=== PATIENT | male | born 1950 | race Caucasian/White ===

== ENCOUNTER 2020-02-22 10:26 | Outpatient (CLI) | payer MEDICARE ==
--- NOTE | 2020-02-22 13:18 | MRI ---
MRI LUMBAR SPINE PERFORMED WITHOUT CONTRAST ENHANCEMENT: Date: 02/22/2020 HISTORY: Back pain with radiculopathy. FINDINGS: Vertebral bodies are normal in height. There are some disc desiccation changes along the course of th e spine. There is very mild disc narrowing at the L3-4 and L4-5 levels. Schmorl's node change is seen involving the inferior end plate of L3 associated with some edema change. There is no significant pe riaortic adenopathy. Incidental note is made of a moderately distended bladder partially visualized o n this study. The visualized kidneys show no focal findings. T12-L1: Unremarkable. L1-2: Degenerative facet changes without canal or foraminal stenosis. L2-3: Canal is borderline narrowed with degenerative facet and ligamentous hypertrophic change and s ome disc bulge. L3-4: There is a mild degree of canal stenosis, mainly related to the facet and ligamentous hypertro phy change. Disc bulge contributes to some moderate left foraminal stenosis in conjunction with the f acet changes. L4-5: Canal is also mildly stenotic at this level. Prominent degenerative facet changes are seen. Th ere is mild to moderate right and moderate left foraminal stenosis. L5-S1: Degenerative facet changes are also present at this level with moderately severe bilateral fo raminal narrowing. IMPRESSION: Multilevel areas of foraminal stenosis as above. POS: MARTY
== END 2020-02-22 10:27 | disposition home or self-care (01) ==
LOC: TBSIIMAG 10:26
PROVIDERS: ATTEND Specialist
DX: M54.16 Radiculopathy, lumbar region (principal); M48.061 Spinal stenosis, lumbar region without neurogenic claudication; M48.07 Spinal stenosis, lumbosacral region
CPT/HCPCS: 72148

== ENCOUNTER 2020-11-09 13:13 | Outpatient (CLI) | payer MEDICARE | END 2020-11-09 13:14 | disposition home or self-care (01) | LOC: SCSMRI 13:13 | PROVIDERS: ATTEND Orthopaedic Surgery | DX: M23.304 Other meniscus derangements, unspecified medial meniscus, left knee (principal); S83.242A Other tear of medial meniscus, current injury, left knee, initial encounter; R60.0 Localized edema ==

== ENCOUNTER 2021-02-26 10:05 | Outpatient (CLI) | payer MEDICARE ==
[2021-02-26 12:57] LABS: #Eosinphils 0.1 10x3/uL (0.0-0.5); #Monocytes 0.5 10x3/uL (0.0-1.1); %Basophils 0.7 % (0.0-2.0); %Eosinophils 1.5 % (0.0-6.0); %Lymphocytes 42.5 % (18.0-47.0); %Monocytes 10.4 % (0.0-10.0); %Neutrophils 44.7 % (40.0-75.0); Hemoglobin 14.9 g/dL (13.5-17.5); Mean Corpuscular HGB CONC 34.3 g/dL (32.0-36.0); Mean Corpuscular Hemoglobin 31.9 pg (27.0-33.0); Mean Corpuscular Volume 92.9 fl (81.2-95.1); Mean Platelet Volume 9.6 fl (7.4-10.4); Platelet Count 173 10x3/uL (150-450); RBC Distribution Width 11.6 % (11.5-14.5); Red Blood Cell (RBC) Count 4.67 10x6/uL (4.32-5.72); White Blood Cell (WBC) Count 4.5 10x3/uL (3.5-10.5)
[2021-02-26 13:19] LABS: Anion Gap 14 mmol/L (10-20); BUN (Urea Nitrogen) 17 mg/dL (8.4-25.7); Calc. Creatinine Clearance 0 mL/min (70-130); Calcium 9.7 mg/dL (7.8-10.44); Carbon Dioxide 23 mmol/L (23-31); Chloride 107 mmol/L (98-107); Glucose 86 mg/dL (80-115); Potassium 4.4 mmol/L (3.5-5.1); Sodium 140 mmol/L (136-145)
[2021-02-26 22:20] LABS: SARS-CoV-2 PCR by NAA Not Detected (NotDetected)
== END 2021-02-26 10:06 | disposition home or self-care (01) ==
LOC: LABBT 10:05
PROVIDERS: ATTEND Orthopaedic Surgery
DX: Z01.818 Encounter for other preprocedural examination (principal); S83.242A Other tear of medial meniscus, current injury, left knee, initial encounter; Z20.822 Contact with and (suspected) exposure to COVID-19
CPT/HCPCS: 80048; 85025; 93005; U0003; U0005; 93010

== ENCOUNTER 2021-03-01 06:52 | Day surgery (SDC) | payer MEDICARE ==
[2021-02-28 14:28] VITALS: BMI 32.5
== END 2021-03-01 09:10 | disposition home or self-care (01) ==
LOC: SDC 06:52
PROVIDERS: ATTEND Orthopaedic Surgery
DX: M23.204 Derangement of unspecified medial meniscus due to old tear or injury, left knee (principal); Z53.09 Procedure and treatment not carried out because of other contraindication; R07.89 Other chest pain; R06.02 Shortness of breath; R94.31 Abnormal electrocardiogram [ECG] [EKG]; I10 Essential (primary) hypertension; E78.5 Hyperlipidemia, unspecified; Z79.82 Long term (current) use of aspirin; Z79.899 Other long term (current) drug therapy
CPT/HCPCS: J0690

== ENCOUNTER 2021-04-23 13:25 | Outpatient (CLI) | payer MEDICARE ==
[2021-04-23 14:34] LABS: #Monocytes 0.5 10x3/uL (0.0-1.1); #Neutrophils 3.3 10x3/uL (1.5-8.4); %Basophils 0.3 % (0.0-2.0); %Eosinophils 0.3 % (0.0-6.0); %Lymphocytes 35.9 % (18.0-47.0); %Monocytes 8.8 % (0.0-10.0); %Neutrophils 54.2 % (40.0-75.0); Hemoglobin 16.5 g/dL (13.5-17.5); Mean Corpuscular HGB CONC 33.9 g/dL (32.0-36.0); Mean Corpuscular Hemoglobin 30.8 pg (27.0-33.0); Mean Corpuscular Volume 90.9 fl (81.2-95.1); Platelet Count 190 10x3/uL (150-450); Red Blood Cell (RBC) Count 5.36 10x6/uL (4.32-5.72); White Blood Cell (WBC) Count 6.2 10x3/uL (3.5-10.5)
[2021-04-23 15:25] LABS: Anion Gap 13 mmol/L (10-20); BUN (Urea Nitrogen) 20 mg/dL (8.4-25.7); Calc. Creatinine Clearance 0 mL/min (70-130); Calcium 9.2 mg/dL (7.8-10.44); Carbon Dioxide 27 mmol/L (23-31); Chloride 102 mmol/L (98-107); Glucose 100 mg/dL (80-115); Potassium 3.9 mmol/L (3.5-5.1); Sodium 138 mmol/L (136-145)
[2021-04-23 20:29] LABS: SARS-CoV-2 PCR by NAA Not Detected (NotDetected)
== END 2021-04-23 13:26 | disposition home or self-care (01) ==
LOC: LABBT 13:25
PROVIDERS: ATTEND Orthopaedic Surgery
DX: Z01.812 Encounter for preprocedural laboratory examination (principal); S83.242A Other tear of medial meniscus, current injury, left knee, initial encounter; Z20.822 Contact with and (suspected) exposure to COVID-19
CPT/HCPCS: 80048; 85025; U0003; U0005

== ENCOUNTER 2021-04-26 05:45 | Day surgery (SDC) | payer MEDICARE ==
[2021-04-25 12:10] VITALS: BMI 32.5
[2021-04-26] MEDS ORDERED: PROPOFOL 20 ML ONE (06:51)
[2021-04-26] MEDS ORDERED: Lidocaine 1% PF 5 ML VIAL ONE (07:13)
[2021-04-26] MEDS ORDERED: Glycopyrrolate 0.2 MG/ML 5 ML SYRINGE ONE (07:13)
[2021-04-26] MEDS ORDERED: Lidocaine 2% w/Epinephrine 1:200K 20 ML VIAL ONE (07:13)
[2021-04-26] MEDS ORDERED: Ondansetron PF 4 MG/2 ML Vial ONE (07:13)
[2021-04-26] MEDS ORDERED: PROPOFOL 200 MG/20 ML VIAL ONE (07:13)
[2021-04-26] MEDS ORDERED: Bupivacaine HCl 0.5%/Epinephrine 1:200,000/PF 30 ml Vial ONE (07:13)
[2021-04-26] MEDS ORDERED: Dexamethasone 20 MG/5 ML VIAL ONE (07:13)
[2021-04-26] MEDS ORDERED: ePHEDrine 50 MG/ML VIAL ONE (07:13)
[2021-04-26] MEDS ORDERED: Ketorolac Tromethamine 30 MG/ML VIAL ONE (07:13)
[2021-04-26] MEDS ORDERED: Famotidine/PF 20 mg/2ml Vial ONE (07:32)
[2021-04-26] MEDS ORDERED: Fentanyl 100 MCG/2 ML VIAL ONE (07:32)
== END 2021-04-26 10:53 | disposition home or self-care (01) ==
LOC: SDC 05:45
PROVIDERS: ATTEND Orthopaedic Surgery
PROC: 0SBD4ZZ Excision of Left Knee Joint, Percutaneous Endoscopic Approach (ICD-10-PCS; principal; 2021-04-26)
DX: M23.322 Other meniscus derangements, posterior horn of medial meniscus, left knee (principal); M94.262 Chondromalacia, left knee; M75.21 Bicipital tendinitis, right shoulder; M84.452A Pathological fracture, left femur, initial encounter for fracture; K21.9 Gastro-esophageal reflux disease without esophagitis; I10 Essential (primary) hypertension; N40.0 Benign prostatic hyperplasia without lower urinary tract symptoms; Z79.899 Other long term (current) drug therapy
CPT/HCPCS: J0690; J1100; J1885; J2405; J2704; J3010; J3490; S0028

== ENCOUNTER 2021-08-04 13:46 | Inpatient (IN) | payer MEDICARE ==
[~2021-08-04 13:46] MED LIST: Iopamidol 370 76% 100 ML VIAL ONE
[2021-08-04] MEDS ORDERED: Nitroglycerin 2% Ointment 1 INCH/1 GM Packet ONE (13:58)
[2021-08-04] MEDS ORDERED: Aspirin Chewable 81 MG TAB ONE (13:58)
[2021-08-04 14:40] LABS: #Lymphocytes 2.2 thou/uL (1.20-3.40); #Monocytes 0.8 thou/uL (0.11-0.59); %Eosinophils 0.5 % (0.0-10.0); %Lymphocytes 24.4 % (21.0-51.0); %Neutrophils 66.1 % (42.0-75.0); Hemoglobin 14.5 g/dL (14.0-18.0); Mean Corpuscular HGB CONC 34.3 g/dL (32.0-36.0); Mean Corpuscular Hemoglobin 32.8 pg (27.0-31.0); Mean Corpuscular Volume 95.5 fL (78.0-98.0); Mean Platelet Volume 6.3 fL (7.4-10.4); Platelet Count 188 thou/uL (130-400); RBC Distribution Width 10.9 % (11.5-14.5); Red Blood Cell (RBC) Count 4.43 mill/uL (4.70-6.10)
[2021-08-04 14:51] LABS: PTT 29.7 sec (22.9-36.1); Prothrombin Time 12.9 sec (12.0-14.7)
[2021-08-04 14:57] LABS: ALT (SGPT) 28 U/L (8-55); AST (SGOT) 23 U/L (5-34); Albumin 3.9 g/dL (3.4-4.8); Alkaline Phosphatase 114 U/L (40-110); Anion Gap 14 mmol/L (10-20); BUN (Urea Nitrogen) 15 mg/dL (8.4-25.7); Calc. Creatinine Clearance 0 mL/min (70-130); Calcium 8.8 mg/dL (7.8-10.44); Carbon Dioxide 21 mmol/L (23-31); Chloride 104 mmol/L (98-107); Globulin 2.7 g/dL (2.4-3.5); Glucose 85 mg/dL (80-115); Lipase 37 U/L (8-78); Potassium 3.9 mmol/L (3.5-5.1); Protein, Total 6.6 g/dL (5.8-8.1); Sodium 135 mmol/L (136-145)
[2021-08-04] MEDS ORDERED: Enoxaparin Sodium 80 MG/0.8 ML SYRINGE ONE ×2 (14:59→15:02)
[2021-08-04] MEDS ORDERED: Enoxaparin Sodium 30 MG/0.3 ML SYRINGE ONE (14:59)
[2021-08-04] MEDS ORDERED: Morphine 4 MG/ML VIAL ONE (14:59)
[2021-08-04] MEDS: Amlodipine 5 MG TAB PO SCH (17:20)
[2021-08-04 17:32] VITALS: BMI 33.3
[2021-08-04 17:47] LABS: Troponin I Less than 0.010 ng/mL (< 0.028)
[2021-08-04] MEDS: Atorvastatin Calcium 10 MG TAB PO SCH (20:28)
[2021-08-04 20:41] LABS: Troponin I Less than 0.010 ng/mL (< 0.028)
[2021-08-04] MEDS ORDERED: Ketorolac Tromethamine 30 MG/ML VIAL IVP SCH (21:30)
[2021-08-05 00:08] LABS: SARS-CoV-2 PCR by NAA DETECTED (NotDetected)
[2021-08-05] MEDS: Enoxaparin Sodium 120 MG/0.8 ML SYRINGE SC SCH ×2 (03:06→15:04)
[2021-08-05 05:23] LABS: #Lymphocytes 2.3 thou/uL (1.20-3.40); #Monocytes 0.7 thou/uL (0.11-0.59); #Neutrophils 3.1 thou/uL (1.40-6.50); %Basophils 0.3 % (0.0-1.0); %Eosinophils 0.7 % (0.0-10.0); %Lymphocytes 38.2 % (21.0-51.0); %Monocytes 10.7 % (0.0-10.0); %Neutrophils 50.2 % (42.0-75.0); Hemoglobin 14.2 g/dL (14.0-18.0); Mean Corpuscular HGB CONC 33.2 g/dL (32.0-36.0); Mean Corpuscular Hemoglobin 31.5 pg (27.0-31.0); Mean Corpuscular Volume 94.9 fL (78.0-98.0); Mean Platelet Volume 6.5 fL (7.4-10.4); Platelet Count 171 thou/uL (130-400); RBC Distribution Width 10.9 % (11.5-14.5); White Blood Cell (WBC) Count 6.1 thou/uL (4.8-10.8)
[2021-08-05 05:35] LABS: ALT (SGPT) 75 U/L (8-55); AST (SGOT) 59 U/L (5-34); Albumin 3.7 g/dL (3.4-4.8); Alkaline Phosphatase 160 U/L (40-110); Anion Gap 12 mmol/L (10-20); BUN (Urea Nitrogen) 15 mg/dL (8.4-25.7); Bilirubin, Total 1.2 mg/dL (0.2-1.2); Calc. Creatinine Clearance 74 mL/min (70-130); Calcium 8.7 mg/dL (7.8-10.44); Carbon Dioxide 23 mmol/L (23-31); Chloride 105 mmol/L (98-107); Globulin 2.7 g/dL (2.4-3.5); Glucose 92 mg/dL (80-115); Protein, Total 6.4 g/dL (5.8-8.1); Sodium 136 mmol/L (136-145)
[2021-08-05] MEDS ORDERED: GLUCOS SUL PO SCH (09:00)
[2021-08-05] MEDS ORDERED: [UNRECOGNIZED DRUG - OTHER] PO SCH (09:00)
[2021-08-05] MEDS: Multivitamin W/ Minerals 1 TAB PO SCH (09:33)
[2021-08-05] MEDS: Losartan 25 MG TAB PO SCH (09:33)
[2021-08-05] MEDS: Acetaminophen 325 MG TAB PO PRN ×2 (12:16→20:26)
[2021-08-05] MEDS: Fluticasone Propionate Nasal Spray 16 gm Bottle NASAL SCH (12:29)
[2021-08-05 16:56] LABS: Creatinine, Urine 59.24 mg/dL (63-166)
[2021-08-05] MEDS: Amlodipine 5 MG TAB PO SCH (20:19)
[2021-08-05] MEDS: Atorvastatin Calcium 10 MG TAB PO SCH (20:19)
[2021-08-06 05:07] LABS: #Eosinphils 0.1 thou/uL (0.0-0.7); #Lymphocytes 1.9 thou/uL (1.20-3.40); #Monocytes 0.7 thou/uL (0.11-0.59); #Neutrophils 3.1 thou/uL (1.40-6.50); %Basophils 0.7 % (0.0-1.0); %Eosinophils 1.2 % (0.0-10.0); %Lymphocytes 33.4 % (21.0-51.0); %Monocytes 11.7 % (0.0-10.0); %Neutrophils 53.1 % (42.0-75.0); Hemoglobin 14.8 g/dL (14.0-18.0); Mean Corpuscular HGB CONC 32.4 g/dL (32.0-36.0); Mean Corpuscular Hemoglobin 31.7 pg (27.0-31.0); Mean Platelet Volume 6.2 fL (7.4-10.4); Platelet Count 194 thou/uL (130-400); RBC Distribution Width 10.7 % (11.5-14.5); Red Blood Cell (RBC) Count 4.68 mill/uL (4.70-6.10); White Blood Cell (WBC) Count 5.8 thou/uL (4.8-10.8)
[2021-08-06 05:11] LABS: ALT (SGPT) 54 U/L (8-55); AST (SGOT) 30 U/L (5-34); Albumin 3.8 g/dL (3.4-4.8); Alkaline Phosphatase 149 U/L (40-110); Anion Gap 11 mmol/L (10-20); BUN (Urea Nitrogen) 17 mg/dL (8.4-25.7); Calc. Creatinine Clearance 80 mL/min (70-130); Carbon Dioxide 23 mmol/L (23-31); Chloride 107 mmol/L (98-107); Globulin 2.9 g/dL (2.4-3.5); Glucose 101 mg/dL (80-115); Protein, Total 6.7 g/dL (5.8-8.1); Sodium 137 mmol/L (136-145)
[2021-08-06] MEDS: Losartan 25 MG TAB PO SCH (07:56)
[2021-08-06] MEDS: Multivitamin W/ Minerals 1 TAB PO SCH (07:57)
[2021-08-06] MEDS ORDERED: Apixaban 5 MG TAB PO SCH ×2 (09:00→21:00)
[2021-08-06] MEDS: Fluticasone Propionate Nasal Spray 16 gm Bottle NASAL SCH (11:02)
[2021-08-06 12:03] VITALS: BP 132/82; TEMP 98.4
[2021-08-13] MEDS ORDERED: Apixaban 5 MG TAB PO SCH (09:00)
== END 2021-08-06 13:31 | disposition home or self-care (01) | DRG 177 ==
LOC: ERS 13:46 → INTOOBSV 15:25 → 2NO 15:25 → 2SW 08-05 01:19 → OBSVTOIN 08-06 13:30
PROVIDERS: ADMIT Family Medicine; ATTEND Family Medicine
PROC: 8E0ZXY6 Isolation (ICD-10-PCS; principal; 2021-08-06)
DX: U07.1 COVID-19 (principal); I26.99 Other pulmonary embolism without acute cor pulmonale; J90 Pleural effusion, not elsewhere classified; I10 Essential (primary) hypertension; E78.5 Hyperlipidemia, unspecified; I45.10 Unspecified right bundle-branch block; N18.31 Chronic kidney disease, stage 3a; I12.9 Hypertensive chronic kidney disease with stage 1 through stage 4 chronic kidney disease, or unspecified chronic kidney disease; C44.319 Basal cell carcinoma of skin of other parts of face; C44.212 Basal cell carcinoma of skin of right ear and external auricular canal; M71.22 Synovial cyst of popliteal space [Baker], left knee; M71.21 Synovial cyst of popliteal space [Baker], right knee; E78.00 Pure hypercholesterolemia, unspecified; Z79.899 Other long term (current) drug therapy; Z90.49 Acquired absence of other specified parts of digestive tract
CPT/HCPCS: 36415; 71275; 74174; 80053; 82570; 83690; 83880; 84300; 84484; 85025; 85610; 85730; 93005; 93970; 94760; 96372; 96374; J1650; J1885; J2270; Q9967; U0003; U0005

== ENCOUNTER 2022-08-20 14:07 | Outpatient (CLI) | payer MEDICARE | END 2022-08-20 14:08 | disposition home or self-care (01) | LOC: TBSIIMAG 14:07 | PROVIDERS: ATTEND Nurse Practitioner Family | DX: M50.121 Cervical disc disorder at C4-C5 level with radiculopathy (principal); M50.122 Cervical disc disorder at C5-C6 level with radiculopathy | CPT/HCPCS: 72141 ==

== ENCOUNTER 2022-09-26 11:41 | Outpatient (CLI) | payer MEDICARE | END 2022-09-26 11:42 | disposition home or self-care (01) | LOC: TBSIIMAG 11:41 → MRI 11:42 | PROVIDERS: ATTEND Specialist | DX: M47.26 Other spondylosis with radiculopathy, lumbar region (principal); M51.16 Intervertebral disc disorders with radiculopathy, lumbar region; M48.07 Spinal stenosis, lumbosacral region; M47.817 Spondylosis without myelopathy or radiculopathy, lumbosacral region; M51.37 Other intervertebral disc degeneration, lumbosacral region; M89.38 Hypertrophy of bone, other site | CPT/HCPCS: 72148 ==

== ENCOUNTER 2023-02-12 06:16 | Day surgery (SDC) | payer MEDICARE ==
[2023-02-10 15:24] VITALS: BMI 33.2
[2023-02-12] MEDS ORDERED: Thrombin 5000 UNITS/5 ML VIAL ONE (06:45)
[2023-02-12] MEDS ORDERED: EPINEPHrine 1 MG/ML AMP ONE (06:45)
[2023-02-12] MEDS ORDERED: Bupivacaine PF 0.5% 30 ML VIAL ONE (06:45)
[2023-02-12] MEDS ORDERED: CEFAZOLIN 2 GM VIAL ONE ×2 (07:27→11:21)
[2023-02-12] MEDS ORDERED: Sodium Chloride 0.9% 100 ML ONE ×2 (07:27→11:21)
[2023-02-12] MEDS ORDERED: Dexamethasone 20 MG/5 ML VIAL ONE (07:47)
[2023-02-12] MEDS ORDERED: Ondansetron PF 4 MG/2 ML Vial ONE (07:47)
[2023-02-12] MEDS ORDERED: Rocuronium Bromide 10 MG/ML (10ML VIAL) ONE (07:47)
[2023-02-12] MEDS ORDERED: Glycopyrrolate 0.2 MG/ML 5 ML SYRINGE ONE (07:47)
[2023-02-12] MEDS ORDERED: PROPOFOL 200 MG/20 ML VIAL ONE (07:47)
[2023-02-12] MEDS ORDERED: ePHEDrine Sulfate 50 MG/10 ML VIAL ONE (07:47)
[2023-02-12] MEDS ORDERED: Lidocaine 1% PF 5 ML VIAL ONE (07:47)
[2023-02-12] MEDS ORDERED: Sevoflurane 250 ML INH ANEST BOTTLE ONE (08:08)
[2023-02-12] MEDS ORDERED: fentaNYL 50 mcg/mL 1 mL Vial ONE ×3 (08:12→09:57)
[2023-02-12] MEDS ORDERED: SUGAMMADEX SODIUM 200 MG/2 ML VIAL ONE (08:12)
[2023-02-12] MEDS ORDERED: Tamsulosin HCl 0.4 MG CAP ONE (10:04)
== END 2023-02-12 15:46 | disposition home or self-care (01) ==
LOC: SDC 06:16
PROVIDERS: ATTEND Neurological Surgery
PROC: 01NB0ZZ Release Lumbar Nerve, Open Approach (ICD-10-PCS; principal; 2023-02-12)
DX: M54.16 Radiculopathy, lumbar region (principal); E78.5 Hyperlipidemia, unspecified; M19.90 Unspecified osteoarthritis, unspecified site; I10 Essential (primary) hypertension; K21.9 Gastro-esophageal reflux disease without esophagitis; N40.0 Benign prostatic hyperplasia without lower urinary tract symptoms; Z98.890 Other specified postprocedural states; Z79.82 Long term (current) use of aspirin; Z79.899 Other long term (current) drug therapy
CPT/HCPCS: 63030; 63035; 93005; J3010; 93010; J0171; J1100; J2405; J2704; J3490; S0020

== ENCOUNTER 2024-05-06 09:37 | Outpatient (CLI) | payer MEDICARE | END 2024-05-06 09:38 | disposition home or self-care (01) | LOC: SCSMRI 09:37 | PROVIDERS: ATTEND Student in an Organized Health Care Education/Training Program | DX: M24.811 Other specific joint derangements of right shoulder, not elsewhere classified (principal); M75.121 Complete rotator cuff tear or rupture of right shoulder, not specified as traumatic; M75.111 Incomplete rotator cuff tear or rupture of right shoulder, not specified as traumatic; S43.431A Superior glenoid labrum lesion of right shoulder, initial encounter ==

== ENCOUNTER 2024-05-27 15:30 | Outpatient (CLI) | payer MEDICARE | END 2024-05-27 15:31 | disposition home or self-care (01) | LOC: LABBT 15:30 | PROVIDERS: ATTEND Student in an Organized Health Care Education/Training Program | DX: Z01.810 Encounter for preprocedural cardiovascular examination (principal); S46.011A Strain of muscle(s) and tendon(s) of the rotator cuff of right shoulder, initial encounter; S43.431A Superior glenoid labrum lesion of right shoulder, initial encounter; M75.21 Bicipital tendinitis, right shoulder; M75.51 Bursitis of right shoulder; I12.9 Hypertensive chronic kidney disease with stage 1 through stage 4 chronic kidney disease, or unspecified chronic kidney disease; N18.9 Chronic kidney disease, unspecified; I25.10 Atherosclerotic heart disease of native coronary artery without angina pectoris; I26.99 Other pulmonary embolism without acute cor pulmonale; G47.33 Obstructive sleep apnea (adult) (pediatric); K21.9 Gastro-esophageal reflux disease without esophagitis; Z79.82 Long term (current) use of aspirin; Z79.51 Long term (current) use of inhaled steroids; Z79.899 Other long term (current) drug therapy | CPT/HCPCS: 80048; 85025; 85610; 86850; 86900; 86901; 93005; 93010 ==

== ENCOUNTER 2024-06-01 06:32 | Day surgery (SDC) | payer MEDICARE ==
[2024-05-27 16:03] VITALS: BMI 31.1
[2024-05-27 16:42] LABS: #Basophils 0.03 10x3/uL (0.0-0.2); %Basophils 0.5 % (0.0-1.0); %Eosinophils 0.9 % (0.0-10.0); %Lymphocytes 37.4 % (21.0-51.0); %Monocytes 9.3 % (0.0-10.0); %Neutrophils 51.7 % (42.0-75.0); Hemoglobin 15.6 g/dL (14.0-18.0); Mean Corpuscular HGB CONC 34.7 g/dL (32.0-36.0); Mean Corpuscular Hemoglobin 32.1 pg (27.0-31.0); Mean Corpuscular Volume 92.6 fL (78.0-98.0); Mean Platelet Volume 8.5 fL (7.4-10.4); Platelet Count 180 10x3/uL (130-400); RBC Distribution Width 11.4 % (11.5-14.5); Red Blood Cell (RBC) Count 4.86 mill/uL (4.70-6.10)
[2024-05-27 17:02] LABS: Prothrombin Time 12.7 sec (12.0-14.7)
[2024-05-27 17:03] LABS: Anion Gap 14 mmol/L (10-20); BUN (Urea Nitrogen) 16 mg/dL (8.4-25.7); Calc. Creatinine Clearance 0 mL/min (70-130); Carbon Dioxide 26 mmol/L (23-31); Chloride 105 mmol/L (98-107); Estimated GFR 58; Glucose 88 mg/dL (83-110); Potassium 3.8 mmol/L (3.5-5.1); Sodium 141 mmol/L (136-145)
[2024-06-01] MEDS ORDERED: Ropivacaine 0.5% HCl/PF (150 MG/30 ML VIAL) ONE (08:56)
[2024-06-01] MEDS ORDERED: fentaNYL 50 mcg/mL 1 mL Vial ONE ×3 (08:56→16:20)
[2024-06-01] MEDS ORDERED: Midazolam HCl 2 mg/2 ml Vial ONE (08:56)
[2024-06-01] MEDS ORDERED: PROPOFOL 20 ML ONE (09:40)
[2024-06-01] MEDS ORDERED: fentaNYL PF 100 MCG/2 ML SYRINGE ONE (09:40)
[2024-06-01] MEDS ORDERED: Ondansetron PF 4 MG/2 ML Vial ONE (09:43)
[2024-06-01] MEDS ORDERED: traMADol HCl 50 MG TAB PO PRN ×2 (10:00)
[2024-06-01] MEDS ORDERED: HYDROcodone/Acetaminophen 10/325 mg Tablet PO PRN ×2 (10:00)
[2024-06-01] MEDS ORDERED: Ropivacaine 0.2% 550 ML 550 ML NERVE BLCK SCH (10:00)
[2024-06-01] MEDS ORDERED: Promethazine HCl 25 MG/ML VIAL IM PRN (10:00)
[2024-06-01] MEDS ORDERED: Ondansetron PF 4 MG/2 ML Vial IVP PRN (10:00)
[2024-06-01] MEDS ORDERED: fentaNYL 50 mcg/mL 1 mL Vial SLOW IVP PRN (10:00)
[2024-06-01] MEDS ORDERED: Zolpidem Tartrate 5 MG TAB PO PRN (10:00)
[2024-06-01] MEDS ORDERED: CEFAZOLIN 2 GM VIAL ONE (10:36)
[2024-06-01] MEDS ORDERED: PHENYLEPHRINE-NS 100 MCG/ML 10 ML SYRINGE ONE ×2 (11:15→12:26)
[2024-06-01] MEDS ORDERED: ePHEDrine Sulfate 50 MG/10 ML VIAL ONE (11:45)
[2024-06-01] MEDS ORDERED: Vasopressin 20 UNITS/ML VIAL ONE (12:38)
[2024-06-01] MEDS ORDERED: Rocuronium Bromide 10 MG/ML (10ML VIAL) ONE (12:39)
[2024-06-01] MEDS ORDERED: Tranexamic Acid 1,000 MG/10 ML VIAL ONE (12:47)
[2024-06-01] MEDS ORDERED: Dexamethasone 20 MG/5 ML VIAL ONE (14:55)
[2024-06-01] MEDS ORDERED: SUGAMMADEX SODIUM 200 MG/2 ML VIAL ONE (15:00)
[2024-06-01] MEDS ORDERED: HYDROcodone/Acetaminophen 5/325 mg Tablet ONE (16:51)
== END 2024-06-01 17:32 | disposition home or self-care (01) ==
LOC: SDC 06:32
PROVIDERS: ATTEND Student in an Organized Health Care Education/Training Program
PROC: 0RNJ4ZZ Release Right Shoulder Joint, Percutaneous Endoscopic Approach (ICD-10-PCS; principal; 2024-06-01)
PROC: 0PB94ZZ Excision of Right Clavicle, Percutaneous Endoscopic Approach (ICD-10-PCS; 2024-06-01)
PROC: 3E0T3BZ Introduction of Anesthetic Agent into Peripheral Nerves and Plexi, Percutaneous Approach (ICD-10-PCS; 2024-06-01)
DX: S46.011A Strain of muscle(s) and tendon(s) of the rotator cuff of right shoulder, initial encounter (principal); S43.431A Superior glenoid labrum lesion of right shoulder, initial encounter; M75.51 Bursitis of right shoulder; M75.21 Bicipital tendinitis, right shoulder; I12.9 Hypertensive chronic kidney disease with stage 1 through stage 4 chronic kidney disease, or unspecified chronic kidney disease; N18.9 Chronic kidney disease, unspecified; I25.10 Atherosclerotic heart disease of native coronary artery without angina pectoris; I26.99 Other pulmonary embolism without acute cor pulmonale; G47.33 Obstructive sleep apnea (adult) (pediatric); K21.9 Gastro-esophageal reflux disease without esophagitis; Z79.82 Long term (current) use of aspirin; Z79.51 Long term (current) use of inhaled steroids; Z79.899 Other long term (current) drug therapy
CPT/HCPCS: 29824; 29826; 29827; 64416; 80048; 85025; 85610; 86850; 86900; 86901; A4306; J2250; J2405; J2704; J2795 ×2; J3010; C1713